=== PATIENT | female | born 1965 | race Caucasian/White ===

== ENCOUNTER 2020-09-17 18:42 | Inpatient (IN) | payer MEDICARE, OTHER ==
[~2020-09-17] VITALS: Ht 165.1 cm; Wt 55.8 kg
[2020-09-17] MEDS ORDERED: HYDROCODON-ACE1 EAC2 PO (22:17)
[2020-09-17] MEDS ORDERED: MIRTAZAPINE15 MG PO (22:17)
[2020-09-17] MEDS ORDERED: ELIQUIS5 MG PO (22:18)
[2020-09-17] MEDS ORDERED: CYCLOBENZAPRINE10 MG PO (22:18)
[2020-09-17] MEDS ORDERED: BACLOFEN20 MG PO (22:18)
[2020-09-17] MEDS ORDERED: OMEPRAZOLE20 MG PO (22:19)
[2020-09-17] MEDS ORDERED: PHENYTOIN SODI200 MG PO (22:19)
[2020-09-17] MEDS ORDERED: LISINOPRIL20 MG PO (22:19)
[2020-09-17] MEDS ORDERED: GEMFIBROZIL600 MG PO (22:19)
[2020-09-17] MEDS ORDERED: SERTRALINE HCL100 MG PO (22:20)
[2020-09-17] MEDS ORDERED: TRAZODONE HCL100 MG PO (22:20)
[2020-09-17] MEDS ORDERED: FERROUS SULFAT325 MG PO (22:20)
--- NOTE | 2020-09-17 23:46 | NUR ---
ORDERED HOME MEDICATION TO CONTINUE EXCEPT ELIQUIS AND GEMFIBROZIL PER THE NURSING NOTE.
[2020-09-18 14:49] LABS: HEMOGLOBIN 11.3 gm/dl (12.3-15.3); RED BLOOD COUNT 3.57 M/UL (4.00-5.10); WHITE BLOOD COUNT 3.9 K/UL (4.5-11.0)
[2020-09-18 15:10] LABS: BUN/CREATININE RATIO 23 (0-10)
[2020-09-19 03:46] LABS: HEMOGLOBIN 10.7 gm/dl (12.3-15.3); RED BLOOD COUNT 3.45 M/UL (4.00-5.10); WHITE BLOOD COUNT 3.9 K/UL (4.5-11.0)
[2020-09-19 04:16] LABS: BUN/CREATININE RATIO 21 (0-10)
[2020-09-20 06:07] LABS: HEMOGLOBIN 9.2 gm/dl (12.3-15.3); WHITE BLOOD COUNT 4.1 K/UL (4.5-11.0)
[2020-09-20 06:08] LABS: RED BLOOD COUNT 2.96 M/UL (4.00-5.10)
[2020-09-20 06:29] LABS: BUN/CREATININE RATIO 24 (0-10)
[2020-09-21 13:29] LABS: HEMOGLOBIN 9.9 gm/dl (12.3-15.3); RED BLOOD COUNT 3.17 M/UL (4.00-5.10)
[2020-09-22 03:27] LABS: HEMOGLOBIN 9.6 gm/dl (12.3-15.3); RED BLOOD COUNT 2.99 M/UL (4.00-5.10); WHITE BLOOD COUNT 3.4 K/UL (4.5-11.0)
[2020-09-22 03:59] LABS: BUN/CREATININE RATIO 27 (0-10)
[2020-09-23 07:14] LABS: HEMOGLOBIN 10.1 gm/dl (12.3-15.3)
[2020-09-23 07:28] LABS: BUN/CREATININE RATIO 38 (0-10)
[2020-09-23] MEDS ORDERED: ATORVASTATIN CA20 MG PO ×2 (11:58→12:19)
[2020-09-23] MEDS ORDERED: SENNA LAX8.6 MG PO (12:18)
== END 2020-09-24 13:50 | disposition home health service (06) | DRG 481 ==
LOC: M/S 18:42
PROVIDERS: Internal Medicine; Nurse Practitioner Family; Orthopaedic Surgery; ADMIT Family Medicine
PROC: 0QS604Z Reposition Right Upper Femur with Internal Fixation Device, Open Approach (ICD-10-PCS; principal; 2020-09-19 13:35)
DX: S72.141A Displaced intertrochanteric fracture of right femur, initial encounter for closed fracture (principal); D62 Acute posthemorrhagic anemia; I69.351 Hemiplegia and hemiparesis following cerebral infarction affecting right dominant side; I48.0 Paroxysmal atrial fibrillation; W01.0XXA Fall on same level from slipping, tripping and stumbling without subsequent striking against object, initial encounter; I10 Essential (primary) hypertension; F17.200 Nicotine dependence, unspecified, uncomplicated; G40.909 Epilepsy, unspecified, not intractable, without status epilepticus; F41.9 Anxiety disorder, unspecified; E78.5 Hyperlipidemia, unspecified; Z20.822 Contact with and (suspected) exposure to COVID-19; Y93.9 Activity, unspecified; Z82.3 Family history of stroke; Y92.002 Bathroom of unspecified non-institutional (private) residence as the place of occurrence of the external cause; Z79.01 Long term (current) use of anticoagulants
CPT/HCPCS: 36415; 71045; 73502; 73700; 76000; 80048; 80053; 85014; 85018; 85025; 85027; 86850; 86870; 86900; 86901; 86920; 86922; 93005; 94760; 97110-GP-CQ; 97116-GP-CQ; 97162; 97166; 97535; C1713; J0171; J0690; J1100; J2001; J2250; J2270; J2704; J2795